=== PATIENT | female | born 1980 | race Caucasian/White ===

== ENCOUNTER 2016-10-28 20:26 | Emergency (ER) | payer OTHER ==
[2016-10-28 21:10] LABS: HEMOGLOBIN 14.6 gm/dl (12.3-15.3); RED BLOOD COUNT 4.87 M/UL (4.00-5.10)
== END 2016-10-29 01:58 | disposition home or self-care (01) ==
LOC: ER1 20:26
PROVIDERS: Specialist/Technologist Athletic Trainer
DX: N10 Acute pyelonephritis (principal); Z88.0 Allergy status to penicillin; Z88.1 Allergy status to other antibiotic agents; Z88.8 Allergy status to other drugs, medicaments and biological substances
CPT/HCPCS: 36415; 80053; 81001; 83605; 83690; 84703; 85025; 87040; 96361; 96374; 99284; J2405; J7030

== ENCOUNTER 2016-10-31 19:53 | Inpatient (IN) | payer OTHER ==
[~2016-10-31] VITALS: Ht 162.6 cm; Wt 104.3 kg
[2016-10-31 21:53] LABS: HEMOGLOBIN 13.2 gm/dl (12.3-15.3); RED BLOOD COUNT 4.37 M/UL (4.00-5.10); WHITE BLOOD COUNT 10.7 K/UL (4.5-11.0)
[2016-10-31 22:30] LABS: BUN/CREATININE RATIO 9 (0-10)
[2016-11-01] MEDS ORDERED: TORADOL 10 MG T10 MG PO ×2 (04:48→05:04)
[2016-11-01] MEDS ORDERED: LEVAQUIN750 MG PO (04:49)
[2016-11-01] MEDS ORDERED: PAROXETINE HCL40 MG PO (04:50)
[2016-11-01] MEDS ORDERED: BACTRIM DS TAB1 EACH PO (04:50)
[2016-11-01] MEDS ORDERED: ZOFRAN4 MG PO (04:52)
[2016-11-01] MEDS ORDERED: BUSPIRONE HCL10 MG PO (04:52)
[2016-11-01] MEDS ORDERED: VITAMIN D2000 UNI1 PO (04:53)
[2016-11-01] MEDS ORDERED: COREG 3.125M3.125 MG PO (04:53)
[2016-11-01] MEDS ORDERED: VITAMIN B-121000 MCG PO (04:55)
[2016-11-01] MEDS ORDERED: BC POWDER PACK1 EACH PO (04:56)
[2016-11-01] MEDS ORDERED: TYLENOL 500 MG500 MG PO (05:00)
[2016-11-01] MEDS ORDERED: IBUPROFEN600 MG PO (05:00)
[2016-11-03 04:32] LABS: HEMOGLOBIN 11.7 gm/dl (12.3-15.3); RED BLOOD COUNT 3.99 M/UL (4.00-5.10)
[2016-11-03 04:34] LABS: WHITE BLOOD COUNT 5.1 K/UL (4.5-11.0)
[2016-11-03 04:57] LABS: BUN/CREATININE RATIO 9 (0-10)
[2016-11-03] MEDS ORDERED: FIORICET TAB1 EA PO (12:35)
[2016-11-03] MEDS ORDERED: MACROBID 100 M100 MG PO (12:37)
== END 2016-11-03 13:21 | disposition home or self-care (01) | DRG 690 ==
LOC: ER1 19:53 → ZEROF 11-01 03:00 → MED SURG 4 11-01 03:00
PROVIDERS: Emergency Medicine; ADMIT Internal Medicine
DX: N30.01 Acute cystitis with hematuria (principal); E86.0 Dehydration; B96.20 Unspecified Escherichia coli [E. coli] as the cause of diseases classified elsewhere; Z16.23 Resistance to quinolones and fluoroquinolones; Z16.29 Resistance to other single specified antibiotic; R11.2 Nausea with vomiting, unspecified; I10 Essential (primary) hypertension; G43.909 Migraine, unspecified, not intractable, without status migrainosus; K21.9 Gastro-esophageal reflux disease without esophagitis; E66.9 Obesity, unspecified; Z68.39 Body mass index [BMI] 39.0-39.9, adult; F41.0 Panic disorder [episodic paroxysmal anxiety]; F32.9 Major depressive disorder, single episode, unspecified; Z79.82 Long term (current) use of aspirin; Z79.1 Long term (current) use of non-steroidal anti-inflammatories (NSAID); Z79.899 Other long term (current) drug therapy; Z88.3 Allergy status to other anti-infective agents; Z88.0 Allergy status to penicillin; Z88.8 Allergy status to other drugs, medicaments and biological substances; Z83.79 Family history of other diseases of the digestive system
CPT/HCPCS: 36415; 70450; 71020; 76705; 80053; 81001; 83605; 83690; 83735; 84703; 85025; 86140; 87040; 87077; 87086; 87186; 96361; 96365; 96366; 96372; 96375; 96376; 99285; C9113; G0378; J1956; J2270; J2405; J3030; J7030

== ENCOUNTER 2020-12-07 23:45 | Emergency (ER) | payer BC, OTHER ==
[~2020-12-07 23:45] MED LIST: BACTRIM DS TAB1 EACH PO; BC POWDER PACK1 EACH PO; BUSPIRONE HCL10 MG PO; COLACE 100MG C100 MG PO; COREG 3.125M3.125 MG PO; FIORICET TAB1 EA PO; IBUPROFEN800 MG PO; LEVAQUIN750 MG PO; MACROBID 100 M100 MG PO; NEXIUM40 MG PO; NORCO 7.5-3251 EACH PO; PAROXETINE HCL40 MG PO; SINGULAIR10 MG PO; TORADOL 10 MG T10 MG PO; TYLENOL 500 MG500 MG PO; VITAMIN B-121000 MCG PO; VITAMIN D2000 UNI1 PO; ZOFRAN4 MG PO
== END 2020-12-08 02:00 | disposition left against medical advice (07) ==
LOC: ER1 23:45
DX: Z53.21 Procedure and treatment not carried out due to patient leaving prior to being seen by health care provider (principal)

== ENCOUNTER → 2021-02-11 | Day surgery (SDC) | payer BC, OTHER ==
[~2021-02-11] MED LIST changes: +B12 ACTIVE1000 MCG PO; +UBRELVY100 MG PO; +VITAMIN D 40400 UNIT PO
== END | disposition home or self-care (01) ==
LOC: OR 06:07
DX: K29.70 Gastritis, unspecified, without bleeding (principal); R13.10 Dysphagia, unspecified; K21.9 Gastro-esophageal reflux disease without esophagitis; K82.8 Other specified diseases of gallbladder; F41.9 Anxiety disorder, unspecified; M19.90 Unspecified osteoarthritis, unspecified site; E78.00 Pure hypercholesterolemia, unspecified; G43.909 Migraine, unspecified, not intractable, without status migrainosus; Z79.899 Other long term (current) drug therapy; Z88.0 Allergy status to penicillin; Z20.822 Contact with and (suspected) exposure to COVID-19; Z90.49 Acquired absence of other specified parts of digestive tract
CPT/HCPCS: 84703; J2250; J2704; J3010; J7030

== ENCOUNTER → 2021-05-02 | Outpatient (CLI) | payer BC, OTHER | LOC: KOH-I 15:25 | DX: R05.3 Chronic cough (principal) | CPT/HCPCS: 71046 ==

== ENCOUNTER → 2021-09-23 | Outpatient (CLI) | payer BC, OTHER ==
[2021-09-23 07:54] LABS: HEMOGLOBIN 13.7 gm/dl (12.3-15.3); RED BLOOD COUNT 4.73 M/UL (4.00-5.10); WHITE BLOOD COUNT 7.2 K/UL (4.5-11.0)
[2021-09-23 08:56] LABS: BUN/CREATININE RATIO 18 (0-10)
[2021-09-24 08:17] LABS: ANTISTREPTOLYSIN O AB <20.0 IU/mL (0.0-200.0); COMPLEMENT C3, SERUM 179 mg/dL (82-167); COMPLEMENT C4, SERUM 33 mg/dL (12-38); RHEUMATOID ARTHRITIS FACTOR <10.0 IU/mL (<14.0); VITAMIN D, 25-HYDROXY 20.2 ng/mL (30.0-100.0)
[2021-09-24 13:18] LABS: ANTI-DSDNA ANTIBODIES 6 IU/mL (0-9); ANTICHROMATIN ANTIBODIES <0.2 AI (0.0-0.9)
== END ==
LOC: LAB 07:26
PROVIDERS: Nurse Practitioner
DX: E78.2 Mixed hyperlipidemia (principal); I10 Essential (primary) hypertension; E55.9 Vitamin D deficiency, unspecified; D51.3 Other dietary vitamin B12 deficiency anemia; E03.8 Other specified hypothyroidism; M25.50 Pain in unspecified joint
CPT/HCPCS: 36415; 80053; 80061; 82607; 83036; 84439; 84443; 84550; 85027; 85652; 86038; 86060; 86140; 86160; 86225; 86431

== ENCOUNTER → 2021-10-16 | Outpatient (CLI) | payer BC, OTHER | LOC: KOH-I 11:29 | DX: M54.2 Cervicalgia (principal); G43.009 Migraine without aura, not intractable, without status migrainosus | CPT/HCPCS: 72040 ==

== ENCOUNTER 2021-10-23 18:44 | Emergency (ER) | payer BC, OTHER ==
[2021-10-23 20:01] LABS: HEMOGLOBIN 13.1 gm/dl (12.3-15.3); RED BLOOD COUNT 4.42 M/UL (4.00-5.10)
[2021-10-23 20:24] LABS: BUN/CREATININE RATIO 17 (0-10)
[2021-10-23] MEDS ORDERED: CEFUROXIME500 MG PO (21:44)
== END 2021-10-23 22:45 | disposition home or self-care (01) ==
LOC: ER1 18:44
PROVIDERS: Physician Assistant Medical
DX: N39.0 Urinary tract infection, site not specified (principal)
CPT/HCPCS: 80053; 81001; 85025; 96374; 99283; J0696

== ENCOUNTER → 2021-12-08 | Outpatient (CLI) | payer BC, OTHER ==
[~2021-12-08] MED LIST changes: +CEFUROXIME500 MG PO
== END ==
LOC: KOH-I 13:10
DX: R10.9 Unspecified abdominal pain (principal); R14.3 Flatulence
CPT/HCPCS: 74018